=== PATIENT | male | born 1970 | race Caucasian/White ===

== ENCOUNTER 2021-03-22 06:21 | Emergency (ER) | payer OTHER ==
[~2021-03-22 06:21] MED LIST: NORCO 5-325 TA1 EACH PO
== END 2021-03-22 09:30 | disposition home or self-care (01) ==
LOC: FER 06:21
DX: S90.424A Blister (nonthermal), right lesser toe(s), initial encounter (principal); I10 Essential (primary) hypertension; Z88.5 Allergy status to narcotic agent; X58.XXXA Exposure to other specified factors, initial encounter
CPT/HCPCS: 73630